=== PATIENT | male | born 1955 | race Two or more races ===

== ENCOUNTER → 2017-02-20 13:19 | Outpatient (CLI) | payer OTHER | END | disposition home or self-care (01) | LOC: LAB 13:19 | DX: I10 Essential (primary) hypertension (principal); E78.4 Other hyperlipidemia ==

== ENCOUNTER → 2017-04-03 08:27 | Outpatient (CLI) | payer OTHER | END | disposition home or self-care (01) | LOC: LAB 08:27 | DX: I10 Essential (primary) hypertension (principal); Z12.5 Encounter for screening for malignant neoplasm of prostate; N40.2 Nodular prostate without lower urinary tract symptoms ==

== ENCOUNTER → 2017-05-20 16:32 | Outpatient (CLI) | payer OTHER | END | disposition home or self-care (01) | LOC: RAD 16:32 | DX: M25.561 Pain in right knee (principal); E78.5 Hyperlipidemia, unspecified; I10 Essential (primary) hypertension ==

== ENCOUNTER 2018-04-22 16:29 | Outpatient (CLI) | payer OTHER | END 2018-04-22 17:21 | disposition home or self-care (01) | LOC: LAB 16:29 | DX: R97.20 Elevated prostate specific antigen [PSA] (principal); Z76.0 Encounter for issue of repeat prescription; I10 Essential (primary) hypertension; Z13.89 Encounter for screening for other disorder; Z13.220 Encounter for screening for lipoid disorders; Z12.5 Encounter for screening for malignant neoplasm of prostate; Z12.11 Encounter for screening for malignant neoplasm of colon; Z11.3 Encounter for screening for infections with a predominantly sexual mode of transmission; Z11.4 Encounter for screening for human immunodeficiency virus [HIV] ==

== ENCOUNTER 2018-04-23 18:10 | Outpatient (CLI) | payer OTHER | END 2018-04-23 18:36 | disposition home or self-care (01) | LOC: LAB 18:10 | DX: R97.20 Elevated prostate specific antigen [PSA] (principal); I10 Essential (primary) hypertension; Z76.0 Encounter for issue of repeat prescription; Z13.89 Encounter for screening for other disorder; Z12.5 Encounter for screening for malignant neoplasm of prostate; Z12.11 Encounter for screening for malignant neoplasm of colon; Z11.3 Encounter for screening for infections with a predominantly sexual mode of transmission ==

== ENCOUNTER 2018-12-10 15:27 | Outpatient (CLI) | payer OTHER | END 2018-12-10 16:03 | disposition home or self-care (01) | LOC: RAD 15:27 | DX: M25.561 Pain in right knee (principal) ==

== ENCOUNTER → 2022-01-25 | Outpatient (CLI) | payer OTHER | END | disposition home or self-care (01) | LOC: MRI 11:40 | PROVIDERS: ATTEND Specialist | DX: M17.0 Bilateral primary osteoarthritis of knee (principal); D50.9 Iron deficiency anemia, unspecified; M19.92 Post-traumatic osteoarthritis, unspecified site | CPT/HCPCS: 73218; 73718 ==